=== PATIENT | male | born 1985 | race Two or more races ===

== ENCOUNTER 2023-02-05 19:35 | Emergency (ER) | payer SELFPAY ==
[2023-02-05 20:00] LABS: BASO% 0.3 % (0-3); EOS% 0.2 % (0-8); HEMATOCRIT 44.1 % (39.0-50.0); IMMATURE GRANULOCYTES 0.2 % (0.0-5.0); LYMPH% 6.8 % (15-41); MEAN CELL VOLUME 97.6 fL CALC (80.0-100.0); MEAN CORPUSCULAR HGB 33.2 pG CALC (26.0-32.0); NEUT# 9.65 thou/uL (1.82-7.42); NEUT% 85.5 % (42-76); RED BLOOD COUNT 4.52 mill/uL (4.70-6.10); RED CELL DISTRI WIDTH 12.9 % (11.5-15.5)
[2023-02-05 20:25] LABS: ALBUMIN 5.3 g/dL (3.2-5.0); ALKALINE PHOSPHATASE 100 u/l (38-126); ANION GAP 25 (6-22 (CALC)); BILIRUBIN, TOTAL 2.8 mg/dL (0.2-1.3); BUN 38 mg/dL (9-20); BUN/CREATININE RATIO 25 (12-20 (CALC)); CARBON DIOXIDE 17 mmol/l (22-30); CHLORIDE 96 mmol/l (95-108); CREATININE 1.5 mg/dL (0.7-1.3); GFR FOR AFR.AMER. > 60 ML/MIN (>=60 (CALC)); GFR OTHER RACES 53 ML/MIN (>=60 (CALC)); MAGNESIUM 2.5 mg/dL (1.6-2.3); POTASSIUM 3.7 mmol/l (3.5-5.1); SGOT/AST 185 u/l (17-59); SODIUM 135 mmol/l (137-146)
[2023-02-05 22:28] VITALS: BP 126/83
== END 2023-02-05 22:51 | disposition home or self-care (01) | DRG 607 ==
LOC: ED 19:35
PROVIDERS: Family Medicine
DX: S90.822A Blister (nonthermal), left foot, initial encounter (principal); E86.0 Dehydration; F17.210 Nicotine dependence, cigarettes, uncomplicated; S90.821A Blister (nonthermal), right foot, initial encounter; X50.3XXA Overexertion from repetitive movements, initial encounter; Y93.01 Activity, walking, marching and hiking

== ENCOUNTER 2023-03-10 07:57 | Emergency (ER) | payer SELFPAY ==
[~2023-03-10] VITALS: Ht 172.7 cm; Wt 77.0 kg
[2023-03-10 08:03] VITALS: BP 111/74
[2023-03-10 08:29] LABS: ALKALINE PHOSPHATASE 60 u/l (38-126); CHLORIDE 102 mmol/l (95-108); CREATININE 0.8 mg/dL (0.7-1.3); GFR FOR AFR.AMER. > 60 ML/MIN (>=60 (CALC)); GFR OTHER RACES > 60 ML/MIN (>=60 (CALC)); POTASSIUM 4.3 mmol/l (3.5-5.1); SODIUM 139 mmol/l (137-146)
[2023-03-10 08:33] LABS: ALBUMIN 4.1 g/dL (3.2-5.0); ANION GAP 9 (6-22 (CALC)); BUN 14 mg/dL (9-20); BUN/CREATININE RATIO 18 (12-20 (CALC)); CARBON DIOXIDE 32 mmol/l (22-30); SGOT/AST 22 u/l (17-59); TOTAL PROTEIN 6.6 g/dL (6.3-8.2); URINE BILIRUBIN - DIPSTICK NEGATIVE (NEGATIVE); URINE BLOOD DIPSTICK NEGATIVE (NEGATIVE); URINE COLOR YELLOW; URINE GLUCOSE - DIPSTICK NEGATIVE (NEGATIVE); URINE KETONE NEGATIVE (NEGATIVE); URINE LEUK ESTERASE NEGATIVE (NEGATIVE); URINE PROTEIN - DIPSTICK NEGATIVE (NEG-TRACE); URINE SPECIFIC GRAVITY 1.015; URINE UROBILINOGEN - DIPSTICK 0.2 E.U./dL (0.2)
[2023-03-10 08:35] LABS: URINE NITRITE - DIPSTICK NEGATIVE (Negative)
[2023-03-10 09:01] VITALS: BP 99/49
[2023-03-10 09:31] VITALS: BP 114/70
[2023-03-10 11:44] VITALS: BP 114/70
== END 2023-03-10 11:53 | disposition home or self-care (01) | DRG 204 ==
LOC: ED 07:57
PROVIDERS: Family Medicine
DX: R05.9 Cough, unspecified (principal); F12.90 Cannabis use, unspecified, uncomplicated; F17.210 Nicotine dependence, cigarettes, uncomplicated; Z20.822 Contact with and (suspected) exposure to COVID-19

== ENCOUNTER 2023-05-17 11:43 | Emergency (ER) | payer SELFPAY ==
[~2023-05-17] VITALS: Ht 172.7 cm; Wt 72.5 kg
[2023-05-17 12:02] VITALS: BP 102/78
[2023-05-17 12:15] VITALS: BP 105/66
[2023-05-17 12:30] VITALS: BP 110/58
[2023-05-17 12:45] VITALS: BP 91/55
[2023-05-17 13:00] VITALS: BP 96/48
[2023-05-17] MEDS ORDERED: NAPROXEN500 MG PO (13:06)
[2023-05-17 13:12] VITALS: BP 96/48
== END 2023-05-17 13:16 | disposition home or self-care (01) | DRG 563 ==
LOC: ED 11:43
DX: S93.402A Sprain of unspecified ligament of left ankle, initial encounter (principal); F17.200 Nicotine dependence, unspecified, uncomplicated; W22.09XA Striking against other stationary object, initial encounter

== ENCOUNTER 2023-06-11 08:44 | Emergency (ER) | payer SELFPAY ==
[~2023-06-11] VITALS: Ht 172.7 cm; Wt 72.5 kg
[~2023-06-11 08:44] MED LIST: NAPROXEN500 MG PO
[2023-06-11 08:50] VITALS: BP 100/76
[2023-06-11 09:00] VITALS: BP 111/81
[2023-06-11 09:35] LABS: BASO% 0.3 % (0-3); EOS% 1.5 % (0-8); HEMATOCRIT 40.5 % (39.0-50.0); HEMOGLOBIN 13.9 g/dl (14.0-18.0); IMMATURE GRANULOCYTES 0.2 % (0.0-5.0); LYMPH% 12.6 % (15-41); MEAN CELL VOLUME 97.6 fL CALC (80.0-100.0); MEAN CORPUSCULAR HGB 33.5 pG CALC (26.0-32.0); MEAN CORPUSCULAR HGB CONC 34.3 g/dL CAL (32.0-36.0); MONO% 7.4 % (2-13); NEUT# 8.16 thou/uL (1.82-7.42); RED BLOOD COUNT 4.15 mill/uL (4.70-6.10); RED CELL DISTRI WIDTH 12.6 % (11.5-15.5)
[2023-06-11 10:09] LABS: ALBUMIN 3.8 g/dL (3.2-5.0); BUN 10 mg/dL (9-20); BUN/CREATININE RATIO 17 (12-20 (CALC)); CHLORIDE 104 mmol/l (95-108); CREATININE 0.6 mg/dL (0.7-1.3); GFR FOR AFR.AMER. > 60 ML/MIN (>=60 (CALC)); GFR OTHER RACES > 60 ML/MIN (>=60 (CALC)); POTASSIUM 3.7 mmol/l (3.5-5.1); SGOT/AST 32 u/l (17-59); SODIUM 137 mmol/l (137-146); TOTAL PROTEIN 6.8 g/dL (6.3-8.2)
[2023-06-11 10:10] LABS: ALKALINE PHOSPHATASE 97 u/l (38-126); ANION GAP 12 (6-22 (CALC)); BILIRUBIN, TOTAL 0.4 mg/dL (0.2-1.3); CARBON DIOXIDE 25 mmol/l (22-30)
[2023-06-11] MEDS ORDERED: KEFLEX500 MG PO (10:27)
[2023-06-11] MEDS ORDERED: MOTRIN800 MG PO (10:28)
[2023-06-11] MEDS ORDERED: BACTRIM DS1 TAB PO (10:28)
[2023-06-11 10:50] VITALS: BP 116/65
--- NOTE | 2023-06-13 16:54 | NUR ---
PRELIMINARY CULTURE RESULTS GUEVARA TO . NO NEW ORDERS.
== END 2023-06-11 10:57 | disposition home or self-care (01) | DRG 603 ==
LOC: ED 08:44
PROVIDERS: Emergency Medicine
DX: L03.114 Cellulitis of left upper limb (principal); L01.00 Impetigo, unspecified; F17.200 Nicotine dependence, unspecified, uncomplicated